=== PATIENT | female | born 1980 | race Caucasian/White ===

== ENCOUNTER 2017-07-04 10:48 | Emergency (ER) | payer OTHER ==
[~2017-07-04] VITALS: Ht 165.1 cm; Wt 64.4 kg
[~2017-07-04 10:48] MED LIST: FOLIC ACID0.8 MG PO; PRENATAL TABLE1 EAC3 PO; PROMETHAZINE HC25 M1 PO; TYLENOL EXTRA500 MG PO; ZOFRAN4 MG PO
[2017-07-04] MEDS ORDERED: ATIVAN0.5 MG PO (11:02)
[2017-07-04] MEDS ORDERED: CICLOPIROX30 GM TP (11:12)
[2017-07-04] MEDS ORDERED: FLUCONAZOLE200 MG PO (11:12)
[2017-07-04 13:37] VITALS: BP 111/67
== END 2017-07-04 13:40 | disposition home or self-care (01) ==
LOC: EME 10:48
DX: B35.4 Tinea corporis (principal); F41.1 Generalized anxiety disorder
CPT/HCPCS: 99281; 99284